=== PATIENT | female | born 1965 | race Caucasian/White ===

== ENCOUNTER 2017-10-14 15:02 | Emergency (ER) | payer OTHER ==
[~2017-10-14] VITALS: Ht 172.7 cm; Wt 63.0 kg
[~2017-10-14 15:02] MED LIST: HYDR-3533 PO; IBUP-232 PO; PROM25TA5 PO; TAMS5CAP PO
[2017-10-14 15:22] VITALS: BP 124/88; PULSE 82; RESP 18; TEMP 97.5; O2SAT 100
[2017-10-14] MEDS ORDERED: SODIUM CHLORIDE 0.9% FLUSH 10 ML FLUSH IVF PRN (15:30)
[2017-10-14] MEDS ORDERED: PROCHLORPERAZINE INJ 10 MG/2 ML VIAL IVP ONE (15:30)
[2017-10-14] MEDS ORDERED: SODIUM CHLORID 0.9% 500 ML INJ 500 ML IV ONE (15:30)
[2017-10-14] MEDS ORDERED: diphenhydrAMINE HCL 50 MG/ML VIAL IVP ONE (15:30)
[2017-10-14] MEDS ORDERED: MORPHINE SULFATE 2 MG/ML INJ IM ONE (15:30)
--- NOTE | 2017-10-14 15:33 | PD ---
HPI Chief Complaint: Headache Time Seen by Provider: 15:22 Travel History International Travel<30 days: No Contact w/Intl Traveler<30days: No Traveled to known affect area: No History of Present Illness HPI 51-year-old female presents with sudden onset severe headache which she states started at the base of her skull and proceeded forward, while at work approximately 40 minutes ago. Patient states she has history of migraines but this is different than previous headaches. She has no visual aura which he normally has in the past. She denies any weakness but states she has numbness in both upper extremities, and nausea, and dizziness when she looks up. Patient states this is the "worst headache of her life". She denies vomiting. She has no weakness in any of her extremities. She denies any other specific neuro complaints. Headache pain is 10 out of 10. She is allergic to codeine, penicillin, and prednisone PFSH Past Medical History Anxiety: Yes Depression: Yes Dialysis: No Diminished Hearing: No Gastrointestinal Disorders: Yes (ULCER) Genitourinary: Yes (UTERINE ULCER) Hiatal Hernia: Yes Kidney Stones: Yes Musculoskeletal: Yes (Hx multiple broken bones) Immunizations Current: No ?: Unknown : 0 Past Surgical History Gynecologic Surgery: Yes (CONE BIOPSY >10YRS) Other Surgery: Yes (Open repair of broken nose) Social History Alcohol Use: Yes (DAILY 2-3 MIXED DRINKS) Tobacco Use: Yes (1PPD) Substance Use: Yes (DENIES 08/02/16) Allergies-Medications (Allergen,Severity, Reaction): Coded Allergies: penicillin G (Unverified Allergy, Intermediate, HIVES, 04/16/17) codeine (Unverified Allergy, Unknown, n/v, 04/16/17) prednisone (Unverified Adverse Reaction, Severe, PANIC ATTACK, 04/16/17) Reported Meds & Prescriptions Reported Meds & Active Scripts Active Clonidine (Clonidine HCl) 0.1 Mg Tab 0.1 Mg PO BID Amlodipine (Amlodipine Besylate) 5 Mg Tab 5 Mg PO DAILY Lisinopril 10 Mg Tab 10 Mg PO DAILY Ibuprofen 600 Mg Tab 600 Mg PO TID Phenergan (Promethazine HCl) 25 Mg Tab 25 Mg PO Q6H PRN Flomax (Tamsulosin HCl) 0.4 Mg Cap 0.4 Mg PO HS 7 Days Lortab (Hydrocodone-Acetaminophen) 5-325 Mg Tab 1 Tab PO Q6H PRN Review of Systems General / Constitutional: No: Fever Eyes: No: Diploplia, Blurred Vision, Photophobia, Drainage, Redness, Foreign Body Sensation, Pain, Tearing, Blind Spots, Visual changes, Blindness HENT: Positive: Headaches (See history of), Lightheadedness ( present illness.) , No: Vertigo, Sore Throat, Rhinitis, Rhinorrhea, Congestion, Nosebleed, Neck Stiffness, Neck Pain, Dental Difficulties, Earache Cardiovascular: No: Chest Pain or Discomfort Respiratory: No: Shortness of Breath Gastrointestinal: Positive: Nausea, No: Vomiting, Diarrhea, Abdominal Pain Genitourinary: No: Dysuria Musculoskeletal: No: Pain Skin: No Rash Neurologic: Positive: Dizziness, Headache, No: Weakness, Syncope, Focal Abnormalities, Coordination Problem, Tremor, Ataxia, Change in Mentation, Slurred Speech (See history of present illness), Paresthesia, Incontinence, Seizures, Sensory Disturbance, Other Psychiatric: No: Anxiety, Depression, Suicidal Ideations, Homicidal Ideation Endocrine: No: Polydipsia Hematologic/Lymphatic: No: Easy Bruising Physical Exam Narrative GENERAL: Patient appears in moderate distress. SKIN: Warm and dry. Normal color. Normal turgor. HEAD: Atraumatic. Normocephalic. Headache not reproducible. EYES: Pupils equal and round. No scleral icterus. No injection or drainage. No nystagmus noted. ENT: No nasal bleeding or discharge. Mucous membranes pink and moist. Pharynx is clear. Airway is patent. NECK: Trachea midline. Supple nontender. CARDIOVASCULAR: Regular rate and rhythm. RESPIRATORY: No accessory muscle use. Clear to auscultation. Breath sounds equal bilaterally. GASTROINTESTINAL: Abdomen soft, non-tender, nondistended. Hepatic and splenic margins not palpable. MUSCULOSKELETAL: Extremities without clubbing, cyanosis, or edema. No obvious deformities. NEUROLOGICAL: Awake and alert. No obvious cranial nerve deficits. Motor grossly within normal limits. Five out of 5 muscle strength in the arms and legs. Normal speech. Patient complains of feeling dizzy if she looks upward. PSYCHIATRIC: Appropriate mood and affect; insight and judgment normal. Data Data Last Documented VS Vital Signs Date Time Temp Pulse Resp B/P (MAP) Pulse Ox O2 Delivery O2 Flow Rate FiO2 10/14/17 16:06 96 Room Air 10/14/17 15:22 97.5 82 18 124/88 (100) Orders Orders Complete Blood Count With Diff (10/14/17 15:25) Comprehensive Metabolic Panel (10/14/17 15:25) Prothrombin Time / Inr (Pt) (10/14/17 15:25) Act Partial Throm Time (Ptt) (10/14/17 15:25) Ct Brain W/O Iv Contrast(Rout) (10/14/17 15:25) Ecg Monitoring (10/14/17 15:25) Iv Access Insert/Monitor (10/14/17 15:25) Oximetry (10/14/17 15:25) Sodium Chloride 0.9% Flush (Ns Flush) (10/14/17 15:30) Prochlorperazine Inj (Compazine Inj) (10/14/17 15:30) Diphenhydramine Inj (Benadryl Inj) (10/14/17 15:30) Morphine Inj (Morphine Inj) (10/14/17 15:30) Sodium Chlorid 0.9% 500 Ml Inj (Ns 500 M (10/14/17 15:30) Ketorolac Inj (Toradol Inj) (10/14/17 16:45) Sodium Chlor 0.9% 1000 Ml Inj (Ns 1000 M (10/14/17 16:45) Ed Discharge Order (10/14/17 17:46) Labs Laboratory Tests Test 10/14/17 15:30 White Blood Count 12.7 TH/MM3 Red Blood Count 4.32 MIL/MM3 Hemoglobin 15.2 GM/DL Hematocrit 44.3 % Mean Corpuscular Volume 102.6 FL Mean Corpuscular Hemoglobin 35.2 PG Mean Corpuscular Hemoglobin Concent 34.3 % Red Cell Distribution Width 15.6 % Platelet Count 230 TH/MM3 Mean Platelet Volume 8.4 FL Neutrophils (%) (Auto) 68.4 % Lymphocytes (%) (Auto) 23.4 % Monocytes (%) (Auto) 6.7 % Eosinophils (%) (Auto) 0.7 % Basophils (%) (Auto) 0.8 % Neutrophils # (Auto) 8.7 TH/MM3 Lymphocytes # (Auto) 3.0 TH/MM3 Monocytes # (Auto) 0.8 TH/MM3 Eosinophils # (Auto) 0.1 TH/MM3 Basophils # (Auto) 0.1 TH/MM3 CBC Comment DIFF FINAL Differential Comment Prothrombin Time 10.0 SEC Prothromb Time International Ratio 1.0 RATIO Activated Partial Thromboplast Time 22.9 SEC Blood Urea Nitrogen 15 MG/DL Creatinine 0.86 MG/DL Random Glucose 96 MG/DL Total Protein 7.9 GM/DL Albumin 3.9 GM/DL Calcium Level 9.1 MG/DL Alkaline Phosphatase 95 U/L Aspartate Amino Transf (AST/SGOT) 26 U/L Alanine Aminotransferase (ALT/SGPT) 25 U/L Total Bilirubin 0.5 MG/DL Sodium Level 139 MEQ/L Potassium Level 3.8 MEQ/L Chloride Level 105 MEQ/L Carbon Dioxide Level 24.3 MEQ/L Anion Gap 10 MEQ/L Estimat Glomerular Filtration Rate 70 ML/MIN MDM Medical Decision Making Medical Screen Exam Complete: Yes Emergency Medical Condition: Yes Medical Record Reviewed: Yes Differential Diagnosis Atypical migraine. Intracranial bleed. [place] headache. Aneurysm. Dissection. Narrative Course Patient appears medically stable at time of exam. CT of the head is ordered. Labs are obtained including CBC, CMP, coagulation studies. IV access is obtained, and patient is given 5 mg Compazine IV, 50 mg diphenhydramine IV, 2 mg morphine IV, and 500 mL of normal saline bolus. CT of the head shows no acute process per radiologist. CBC is unremarkable except for a mild leukocytosis of 12.7. Coagulation studies are normal. CMP is unremarkable. Patient states she feels improved after the above treatment, with her pain now rated as a 4 out of 10 down from 10 out of 10. Patient is given additional 1000 mL of normal saline bolus as it was discovered she continued 7 miles yesterday in the heat. Patient is also given Toradol 30 mg IV. Patient is felt stable for discharge home with follow-up with her primary care physician as needed. Work note to return to work tomorrow was given. Patient can return to the ED if symptoms worsen as needed. Diagnosis Primary Impression: Head ache Qualified Codes: R51 - Headache Referrals: Primary Care Physician Patient Instructions: Acute Headache (ED), General Instructions Departure Forms: Work Release Enter return to work date: Oct 15, 2017 Additional Instructions: CT of the head shows no acute process per radiologist. CBC is unremarkable except for a mild leukocytosis of 12.7. Coagulation studies are normal. CMP is unremarkable. Patient states she feels improved after the above treatment, with her pain now rated as a 4 out of 10 down from 10 out of 10. Patient is given additional 1000 mL of normal saline bolus as it was discovered she continued 7 miles yesterday in the heat. Patient is also given Toradol 30 mg IV. Patient is felt stable for discharge home with follow-up with her primary care physician as needed. Work note to return to work tomorrow was given. Patient can return to the ED if symptoms worsen as needed. Med/Other Pt SpecificInfo: No Change to Meds Disposition: 01 DISCHARGE HOME Condition: Stable Brian Talbot Oct 14, 2017 15:33
--- NOTE | 2017-10-14 16:04 | RADRPT ---
EXAM DATE/TIME: 10/14/2017 15:45 [facility] COMPARISON: No previous studies available for comparison. INDICATIONS : Headache RADIATION DOSE: 34.35 CTDIvol (mGy) MEDICAL HISTORY : None SURGICAL HISTORY : None. ENCOUNTER: Initial ACUITY: 1 day PAIN SCALE: 10/10 LOCATION: cranial TECHNIQUE: Multiple contiguous axial images were obtained of the head. Using automated exposure control and adjustment of the mA and/or kV according to patient size, radiation dose was kept as low as reasonably achievable to obtain optimal diagnostic quality images. DICOM format image data is av ailable electronically for review and comparison. FINDINGS: CEREBRUM: The ventricles are normal for age. No evidence of midline shift, mass lesion, hemorrha ge or acute infarction. No extra-axial fluid collections are seen. POSTERIOR FOSSA: The cerebellum and brainstem are intact. The 4th ventricle is midline. The cer ebellopontine angle is unremarkable. EXTRACRANIAL: The visualized portion of the orbits is intact. SKULL: The calvaria is intact. No evidence of skull fracture. CONCLUSION: Negative for acute process David Villalobos MD FACR on October 14, 2017 at 16:01 Board Certified Radiologist. This report was verified electronically.
[2017-10-14 16:06] VITALS: O2SAT 96
[2017-10-14 16:07] LABS: AUTOMATED NEUTROPHIL # 8.7 TH/MM3 (1.8-7.7); BASOPHIL # 0.1 TH/MM3 (0-0.2); BASOPHIL % 0.8 % (0.0-2.0); EOSINOPHIL # 0.1 TH/MM3 (0-0.4); EOSINOPHIL % 0.7 % (0.0-4.0); HEMATOCRIT 44.3 % (35.0-46.0); HEMOGLOBIN 15.2 GM/DL (11.6-15.3); LYMPH % 23.4 % (9.0-44.0); MEAN CELL VOLUME 102.6 FL (80.0-100.0); MEAN CORPUSCULAR HEMOGLOBIN 35.2 PG (27.0-34.0); MEAN CORPUSCULAR HGB CONC 34.3 % (32.0-36.0); MEAN PLATELET VOLUME 8.4 FL (7.0-11.0); MONO % 6.7 % (0.0-8.0); MONOCYTE # 0.8 TH/MM3 (0-0.9); NEUT % 68.4 % (16.0-70.0); PLATELET COUNT 230 TH/MM3 (150-450); RED BLOOD COUNT 4.32 MIL/MM3 (4.00-5.30); RED CELL DISTRIBUTION WIDTH 15.6 % (11.6-17.2); WHITE BLOOD COUNT 12.7 TH/MM3 (4.0-11.0)
[2017-10-14 16:30] LABS: ALBUMIN 3.9 GM/DL (3.4-5.0); ALKALINE PHOSPHATASE 95 U/L (45-117); ALT (GPT) 25 U/L (10-53); AST (GOT) 26 U/L (15-37); BICARBONATE 24.3 MEQ/L (21.0-32.0); BLOOD UREA NITROGEN 15 MG/DL (7-18); CALCIUM 9.1 MG/DL (8.5-10.1); CHLORIDE 105 MEQ/L (98-107); CREATININE 0.86 MG/DL (0.50-1.00); GLOMERULAR FILTRATION RATE 70 ML/MIN (>89); GLUCOSE,RANDOM 96 MG/DL (74-106); SODIUM (NA) 139 MEQ/L (136-145); TOTAL BILIRUBIN ADULT 0.5 MG/DL (0.2-1.0); TOTAL PROTEIN 7.9 GM/DL (6.4-8.2)
[2017-10-14] MEDS ORDERED: SODIUM CHLOR 0.9% 1000 ML INJ 1,000 ML IV ONE (16:45)
[2017-10-14] MEDS ORDERED: KETOROLAC TROMETHAMINE 30 MG/ML (IVP) VIAL IV PUSH ONE (16:45)
[2017-10-14] MEDS ORDERED: AMLO5TAB2 PO (17:29)
[2017-10-14] MEDS ORDERED: CLON0.1T PO (17:29)
[2017-10-14] MEDS ORDERED: LISI10TA3 PO (17:29)
[2017-10-14 18:06] VITALS: BP 123/76
== END 2017-10-14 18:12 | disposition home or self-care (01) ==
LOC: NEPD 15:02
DX: R51 Headache (principal); F41.9 Anxiety disorder, unspecified; F32.9 Major depressive disorder, single episode, unspecified; F17.210 Nicotine dependence, cigarettes, uncomplicated; Z87.442 Personal history of urinary calculi; Z88.0 Allergy status to penicillin; Z88.8 Allergy status to other drugs, medicaments and biological substances; Z79.899 Other long term (current) drug therapy
CPT/HCPCS: 70450; 80053; 85025; 85610; 85730; 96361; 96372; 96374; 96375; 99284; J0780; J1200; J1885; J2270; J7030; J7040